=== PATIENT | female | born 1950 ===

== ENCOUNTER 2019-12-09 14:37 | Emergency (ER) | payer MEDICARE, MEDICAID ==
[~2019-12-09] VITALS: Ht 160 cm; Wt 80.0 kg
[~2019-12-09 14:37] MED LIST: ALBU8.5H8 INH; CLOP75TA52 PO; CYAN250013 PO; FAMO20TA7 PO; GABA300C10 PO; HYDR200T72 PO; LEVO88TA4 PO; LORA-446 PO; LOSA25TA25 PO; METO25TA2 PO; MULT-108 PO; OLAN10TA9 PO; OLAN20TA14 PO; SIMV20TA19 PO
--- NOTE | 2019-12-09 14:40 | NUR ---
pt placed in 4p restraints. agitated, uncooperative and swinging at staff and calling names
[2019-12-09] MEDS ORDERED: ZIPRASIDONE 20 MG INJ IM ONE ×2 (15:00→15:15)
[2019-12-09] MEDS ORDERED: PLEASE ENTER ALLERGIES MC SCH (15:00)
[2019-12-09 15:15] LABS: ALANINE AMINOTRANSFERASE 35 U/L (12-78); ALBUMIN 3.6 g/dL (3.4-5.0); ANION GAP 10 mmol/L (5-15); CALCIUM 8.8 mg/dL (8.5-10.1); CHLORIDE 109 mmol/L (98-107); CREATININE 1.04 mg/dL (0.55-1.02); SALICYLATE LEVEL 2.5 mg/dL (2.8-20.0)
[2019-12-09 15:17] LABS: ALKALINE PHOSPHATASE 95 U/L (45-117); BILIRUBIN,TOTAL 0.4 mg/dL (0.2-1.0); TOTAL PROTEIN 7.8 g/dL (6.4-8.2)
[2019-12-09 15:22] LABS: BASOPHILS # (AUTO) 0.03 x10^3/uL (0-0.1); BASOPHILS % (AUTO) 0 % (0-1); EOSINOPHILS # (AUTO) 0.01 x10^3/uL (0-0.4); EOSINOPHILS % (AUTO) 0 % (1-7); LYMPHOCYTES # (AUTO) 1.85 x10^3/uL (1-3.4); LYMPHOCYTES % (AUTO) 18 % (22-44); MD NO; MEAN CORPUSCULAR HGB CONC 33.2 g/dL (32.4-35.8); MEAN CORPUSCULAR VOLUME 93.4 fL (80-100); MEAN PLATELET VOLUME 8.2 fL (7.4-10.4); MONOCYTES # (AUTO) 0.79 x10^3/uL (0.2-0.8); MONOCYTES % (AUTO) 8 % (2-9); NEUTROPHILS # (AUTO) 7.35 x10^3/uL (1.8-6.8); NEUTROPHILS % (AUTO) 73 % (42-75); PLATELET COUNT 302 x10^3/uL (130-400); RED BLOOD COUNT 4.26 x10^6/uL (3.82-5.3); RED CELL DISTRIBUTION WIDTH 14.6 % (9.6-15.2)
--- NOTE | 2019-12-09 15:30 | NUR ---
Ellen Connolly RN from mental health floor down to ER and identified pt as Marli Quinones, 52. pt had the wounds on her extremities prior to arrival to our mental health facitlity over a week ago. she had been accepted after being placed on a hold at [facility]. Wound care nurse was seeing the pt while on 3E. Speculation was that she got them from overuse of silvadene. Pt had been staying at [facility] [phone]. They would not accept her back from [facility]. Pt AMA'd from 3E yesterday.
--- NOTE | 2019-12-09 15:37 | NUR ---
after medicated with geodon, pt continues to be agitated but quieting down. remains in 4p restraints. will continue to monitor.
--- NOTE | 2019-12-09 16:04 | NUR ---
deescalation techniques attempted, pt unwilling to communicate about safety of staff if restraints removed.
--- NOTE | 2019-12-09 16:26 | NUR ---
briana lagos at bedside, pt currently in 2point restraints down from 4.
--- NOTE | 2019-12-09 16:43 | NUR ---
All restraints removed from pt
--- NOTE | 2019-12-09 17:09 | NUR ---
clothing secured in locker. remains in site of sitter.
--- NOTE | 2019-12-09 17:46 | NUR ---
pt provided food. 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 pt staying in bed and cooperative.
[2019-12-09] MEDS ORDERED: OLANZAPINE 10 MG INJ IM PRN (18:00)
--- NOTE | 2019-12-09 18:41 | NUR ---
[facility] DENIED PT
--- NOTE | 2019-12-09 18:56 | NUR ---
report given to orlando tomlinson.
--- NOTE | 2019-12-09 20:34 | NUR ---
Pt waves to staff outside her room as they pass by then states she is blind in the room. Pt continues to have disorganized speech and is difficult to redirect.
--- NOTE | 2019-12-09 22:00 | NUR ---
Received report from melina that pt is masturbating in the room while pretending to smoke her drinking straw. Pt remains in bed.
[2019-12-09] MEDS ORDERED: NEOSPORIN OINT. PKT 1 PACKET ONE (22:42)
--- NOTE | 2019-12-09 23:04 | NUR ---
Pt picked at a scab on her right arm and the skin opened. The wound was dressed and pt removed the dressing. Pt contiued to yell out of the room. Pt given 10mg Zyprexa IM with assistance from security.
--- NOTE | 2019-12-10 01:25 | NUR ---
Break RN: this RN and sitter went to help pt use bedside commode d/t pt stating she needs to use restroom. Pt refused to have this RN and sitter help her and said "get a man".
--- NOTE | 2019-12-10 02:28 | NUR ---
Pt moved from the bed to a commode. Bed cleaned and linen replaced. Pt sat on the commode for about 15 min. Pt assisted back into the bed. Pt was wiped after being on the commode. Pt noted to have redness to her buttocks with a peeling skin wound on her left buttock. Pt very tender during wiping. Pt also noted to have beads stuck to her buttocks, beads removed.
--- NOTE | 2019-12-10 05:02 | NUR ---
Pt transferred to a hospital bed with an air mattress to help prevent further skin breakdown. Pt was noted to have soiled herself and urinated in the bed. Pt is too incoherent at this time to convey when she has to urinate or have a BM.
--- NOTE | 2019-12-10 06:30 | NUR ---
PT VIOLENTLY REFUSED BP. MEAL TRAY ORDERED
--- NOTE | 2019-12-10 06:50 | NUR ---
Pt lying on gurney yelling at anyone walking by room. Sitter remains in view of pt.
--- NOTE | 2019-12-10 07:01 | NUR ---
Attempted to introduce self to pt and offer water. Pt yelling at RN to get out. Open wound and wounds in various stages of healing noted Bilat LE and Bilat UBia. Pt able to reposition self on hospital bed w/ air mattress.
[2019-12-10] MEDS ORDERED: OLANZAPINE 10 MG TABLET ONE (08:43)
--- NOTE | 2019-12-10 08:51 | NUR ---
Attempted to offer pt water. Pt threw water at RN, yelling "I'm going to shoot you," pointing Right index finger at RN. Pt declining to take medications. Pt yelling "Get out Bitch."
[2019-12-10] MEDS ORDERED: OLANZAPINE 10 MG TABLET PO SCH (09:00)
--- NOTE | 2019-12-10 09:50 | NUR ---
Pt lying in bed, talking to self. Sitter remains in view of pt.
--- NOTE | 2019-12-10 10:13 | NUR ---
Pt became aggressive towards RN while attempting to take BP. Pt ripped off ID band, yelling at RN to "get out or I will shoot you."
--- NOTE | 2019-12-10 10:17 | NUR ---
ERP updated on pt condition. Pending orders
[2019-12-10] MEDS ORDERED: ZIPRASIDONE 20 MG INJ IM ONE ×3 (10:28→21:27)
--- NOTE | 2019-12-10 10:34 | NUR ---
Security called to bedside to assist w/ medication administration. Attempted to explain medication to pt, yelling and screaming to "get out." Pt medicated as ordered.
--- NOTE | 2019-12-10 10:49 | NUR ---
Attempted to speak to pt, yelling "get out before I shoot you." Pt lying back on bed.
--- NOTE | 2019-12-10 11:23 | NUR ---
Attempted to engage pt in conversation. Attempted to offer ice chips or water to pt. Pt stated "Dillon she's on fire," began having conversation w/ self. Pt noted to reposition self on hospital bed without difficulty.
--- NOTE | 2019-12-10 11:54 | NUR ---
Security called to room to assist w/ pt care. Pt noted to be covered in urine, pt combative and uncooperative w/ staff. Pt was cleaned, linens changed and repositioned on hospital gurney. Pt yelling profanities and yelling at staff while cleaning up.
--- NOTE | 2019-12-10 12:44 | NUR ---
Pt provided w/ ice chips. Attempted to engage pt in conversation, pt declining to cooperate w/ RN at this time.
[2019-12-10] MEDS ORDERED: OLANZAPINE 10 MG INJ IM PRN (13:00)
[2019-12-10] MEDS: PALIPERIDONE 3 MG TAB.ER.24 PO SCH (13:00)
--- NOTE | 2019-12-10 13:45 | NUR ---
Security called again to bedside, pt had grabbed cords to hospital bed and was attempting to reach for electrical outlet. Cords removed and secured under bed. Pt repositioned again on bed. Attempted to assist w/ water intake, pt threw cup on floor. Sitter remains in direct view of pt at this time.
--- NOTE | 2019-12-10 13:53 | NUR ---
Pt refusing PO pills at this time, threw water on floor.
--- NOTE | 2019-12-10 14:24 | NUR ---
Pt resting quietly on hospital bed at this time. Respirations even and unlabored. Sitter in direct view of pt.
--- NOTE | 2019-12-10 14:52 | NUR ---
Attempted to offer pt food and water. Pt attempted to spit at RN. Pt moving self on gurney. Sitter remains in direct view of pt.
--- NOTE | 2019-12-10 15:52 | NUR ---
TASK RN: PT IN HOSPITAL BED. AWAKE, YELLING AT SITTER. PT REFUSING TO WEAR GOWN, YELLING AT STAFF. MM DRY. ZYPREXA IM ORDERED FROM PHARMACY
--- NOTE | 2019-12-10 17:00 | NUR ---
Attempted to cover pt w/ blanket, pt yelling and screaming profanities at RN. Shira remains in direct view of pt.
--- NOTE | 2019-12-10 18:22 | NUR ---
Call placed to Pharmacy for Zyprexa IM. Pt continuing to yell, refuses to speak to RN, refusing water, gown and blanket at this time. Sitter remains in direct view of pt.
--- NOTE | 2019-12-10 19:03 | NUR ---
Report to TUNDE العراقي. Shira remains in view of pt.
--- NOTE | 2019-12-10 19:04 | NUR ---
REPORT FROM SCOTT GRIFFITHS, ASSUMING CARE OF PT AT THIS TIME
--- NOTE | 2019-12-10 19:31 | NUR ---
PHARMACY CALLED AGAIN FOR IM ZYPREXA. PT CONTINUES TO BE AGGIGATED AND AGGRESSIVE TO FEMALE STAFF.
--- NOTE | 2019-12-10 19:52 | NUR ---
ATTEMPTED TO MEDICATE PT, PT COMBATIVE ATTEMPTING TO KICK AND HIT RN, SECURITY CALLED, NO ONE AVAILABLE AT THIS TIME. PER SECURITY THEY WILL SEND SOMEONE WHEN THEY CAN.
--- NOTE | 2019-12-10 20:04 | NUR ---
SECURITY AT BEDSIDE FOR SAFETY PT MEDICATED PER ARLINE
--- NOTE | 2019-12-10 20:29 | NUR ---
PT NOW SLEEPING ON HOSPITAL BED AND HAS COVERED HERSELF WITH PROVIDED BLANKETS AT THIS TIME. SITTER REMAINS IN VIEW OF PT FOR MONITORING AND SAFETY
--- NOTE | 2019-12-10 20:57 | NUR ---
PT SLEEPING ON HOSPITAL BED, SITTER IN HALLWAY FOR SAFETY ARTUR
[2019-12-10] MEDS ORDERED: DIVALPROEX 500 MG TABLET.DR ONE (21:01)
--- NOTE | 2019-12-10 21:03 | NUR ---
ATTEMPTED TO MEDICATED PT WITH PO DEPAKOTE, PT STS "DO YOU WANNA ?" "I'M ALLERGIC TO THAT YOU BITCH." PT PROVIDED WITH WATER REQ PT REFUSING PO DEPAKOTE AT THIS TIME.
[2019-12-10] MEDS: DIVALPROEX 500 MG TABLET.DR PO SCH (21:06)
--- NOTE | 2019-12-10 21:36 | NUR ---
PT YELLING AT SITTER AND SHOUTING AT PEOPLE IN [place] "DO YOU WANT TO ?" WHEN PT ASKED IF SHE NEEDS ANYTHING, PT ATTEMPTED TO KICK RN. SECURITY CALLED, PT MEDICATED PER DEC.
[2019-12-10] MEDS: ZIPRASIDONE 20 MG INJ IM PRN (21:38)
--- NOTE | 2019-12-10 22:20 | NUR ---
PT NOW RESTING ON BED, NO LONGER SHOUTING AT SITTER AT THIS TIME.
--- NOTE | 2019-12-10 22:52 | NUR ---
PT CONTINUES TO YELL AT STAFF WHEN ENTERING ROOM.
--- NOTE | 2019-12-10 23:08 | NUR ---
SITTER REMAINING IN HALLWAY LINE OF SIGHT OF PT AT ALL TIMES. PT CONTINUES TO SHOUT AT SITTER BUT REMAINS IN BED AT THIS TIME
--- NOTE | 2019-12-11 00:58 | NUR ---
PT RESTING ON HOSPITAL BED LIGHTS DIMMED FOR COMFORT, SITTER IN HALLWAY FOR SAFETY
--- NOTE | 2019-12-11 01:15 | NUR ---
SPOKE WITH ERP ABOUT NEED FOR URINE, PT CONTINUES TO BE COMBATIVE WITH STAFF WHEN IN ROOM, PER ERP NOT TO CATH PT AT THIS TIME.
--- NOTE | 2019-12-11 02:26 | NUR ---
PT SLEEPING ON BED, ARTUR AT THIS TIME, SITTER IN HALLWAY ARTUR
--- NOTE | 2019-12-11 03:30 | NUR ---
PT AWOKE MOMENTARILY TO COVER SELF AND REPOSITION. PT BACK TO SLEEP SITTER CONTINUES TO MONITOR FROM JAFFE AT THIS TIME.
--- NOTE | 2019-12-11 04:32 | NUR ---
PT STILL SLEEPING. SITTER IN HALLWAY FOR SAFETY
--- NOTE | 2019-12-11 07:00 | NUR ---
REC BS REPORT PT RESTING AT THIS TIME
[2019-12-11] MEDS ORDERED: ZIPRASIDONE 20 MG INJ IM ONE (09:08)
[2019-12-11] MEDS: ZIPRASIDONE 20 MG INJ IM PRN (09:20)
--- NOTE | 2019-12-11 09:45 | NUR ---
PT AGGITATED WENT TO BR SCREAMING IN THE BR REQUIRED MEDICATION AND SECURITY TO RETURN PT TO ROOM CONFIRMED REPEAT GEODON WITH ERP
--- NOTE | 2019-12-11 12:00 | NUR ---
NEW UNDERSTANDING THAT HIS PT HAS NOT BEEN COMPLETELY MEDICALLY CLEARED ERP HAS COMPLETE REORDER OF LABS AT THIS TIME PT TO HAVE COMPLETE MEDICAL EVAL
[2019-12-11 12:54] LABS: BASOPHILS # (AUTO) 0.03 x10^3/uL (0-0.1); BASOPHILS % (AUTO) 0 % (0-1); EOSINOPHILS # (AUTO) 0.19 x10^3/uL (0-0.4); EOSINOPHILS % (AUTO) 2 % (1-7); LYMPHOCYTES # (AUTO) 1.55 x10^3/uL (1-3.4); LYMPHOCYTES % (AUTO) 14 % (22-44); MD NO; MEAN CORPUSCULAR HEMOGLOBIN 30.7 pg (27.0-34.8); MEAN CORPUSCULAR HGB CONC 32.7 g/dL (32.4-35.8); MEAN CORPUSCULAR VOLUME 93.9 fL (80-100); MEAN PLATELET VOLUME 7.9 fL (7.4-10.4); MONOCYTES # (AUTO) 0.77 x10^3/uL (0.2-0.8); MONOCYTES % (AUTO) 7 % (2-9); NEUTROPHILS # (AUTO) 8.77 x10^3/uL (1.8-6.8); NEUTROPHILS % (AUTO) 78 % (42-75); PLATELET COUNT 267 x10^3/uL (130-400); RED BLOOD COUNT 4.33 x10^6/uL (3.82-5.3); RED CELL DISTRIBUTION WIDTH 14.8 % (9.6-15.2)
[2019-12-11 12:55] LABS: MICROSCOPIC NOT IND
[2019-12-11 12:55] LABS: ANION GAP 11 mmol/L (5-15); CALCIUM 8.3 mg/dL (8.5-10.1); CHLORIDE 111 mmol/L (98-107); CREATININE 0.62 mg/dL (0.55-1.02)
[2019-12-11 13:01] LABS: CULTURE INDICATED? NO
[2019-12-11 13:35] LABS: AMPHETAMINE SCREEN, URINE Negative (Negative); BARBITURATE SCREEN, URINE Negative (Negative); BENZODIAZEPINE SCREEN, URINE Positive (Negative); CANNABINOID SCREEN, URINE Negative (Negative); COCAINE SCREEN, URINE Negative (Negative); METHADONE SCREEN, URINE Negative (Negative); OPIATE SCREEN, URINE Negative (Negative)
--- NOTE | 2019-12-11 14:29 | NUR ---
TASK RN: PT RESTING ON HOSP BED. PT STAYING IN ROOM AT THIS TIME. ALL SAFETY MEASURES OBTAINED. WILL CONTINUE TO MONITOR
--- NOTE | 2019-12-11 14:58 | NUR ---
TASK RN: BEDSIDE REPORT TO TUNDE ALTAMIRANO.
[2019-12-11] MEDS ORDERED: DIVALPROEX 500 MG TABLET.DR ONE (15:02)
[2019-12-11] MEDS: DIVALPROEX 500 MG TABLET.DR PO SCH ×2 (15:21→21:00)
[2019-12-11] MEDS: PALIPERIDONE 3 MG TAB.ER.24 PO SCH (15:21)
--- NOTE | 2019-12-11 15:21 | NUR ---
MULTI ATTEMPTS TO GET PT TO TAKE MEDS SHE CONTINUES TO REFUSE
--- NOTE | 2019-12-11 18:24 | NUR ---
PT REMAINS TALKATIVE IN THE DOORWAY REFUSING VITALS DOES TAKE REDIRECTION TO STAY IN THE ROOM
--- NOTE | 2019-12-11 18:34 | NUR ---
THROUGHPUT NOTE: REGISTRATION CALLED TO VERIFY INSURANCE PT IS 69 YO AND SELF PAY. PT WAS NON COMPLIANT PER REG WHEN THEY ORIGINALLY ATTEMPTED TO REGISTER.
--- NOTE | 2019-12-11 20:00 | NUR ---
PT STANDING IN DOORWAY. SITTER FOR DIRECT OBSERVATION. NO NEEDS AT THIS TIME.
--- NOTE | 2019-12-11 20:07 | NUR ---
referral was faxed to [facility], [facility], [facility], and [facility]
--- NOTE | 2019-12-11 21:00 | NUR ---
PT RESTING WITH EYES CLOSED. SITTER IN DOORWAY.
--- NOTE | 2019-12-11 22:00 | NUR ---
PT RESTING WITH EYES CLOSED. SITTER IN DOORWAY.
--- NOTE | 2019-12-11 23:00 | NUR ---
PT RESTING WITH EYES CLOSED. VISUALIZED CHEST RISE. SITTER IN DOORWAY.
--- NOTE | 2019-12-12 01:00 | NUR ---
PT RESTING WITH EYES CLOSED. VISUALIZED CHEST RISE. SITTER IN DOORWAY.
--- NOTE | 2019-12-12 02:17 | NUR ---
[place] eng in ED - 12/12/19 at 0251 by AJ BREAK RN: PT RESTING WITH EYES CLOSED, NADN, EQUAL CHEST RISE/FALL OBSERVED, SITTER AT DOORWAY FOR CONTINOUS MONITORING
--- NOTE | 2019-12-12 02:17 | NUR ---
BREAK RN: PT RESTING WITH EYES CLOSED, NADN, EQUAL CHEST RISE/FALL OBSERVED, SITTER AT DOORWAY FOR CONTINOUS MONITORING
--- NOTE | 2019-12-12 03:00 | NUR ---
PT RESTING WITH EYES CLOSED. VISUALIZED CHEST RISE. SITTER IN DOORWAY.
--- NOTE | 2019-12-12 03:41 | NUR ---
[facility] CALLS AND NOTES THAT THEY CURRENTLY DO NOT HAVE ANY BEDS BUT WILL HOLD ONTO PACKET AND RE-EVAL IN THE MORNING.
--- NOTE | 2019-12-12 04:00 | NUR ---
PT RESTING WITH EYES CLOSED. VISUALIZED CHEST RISE. SITTER IN DOORWAY.
--- NOTE | 2019-12-12 05:00 | NUR ---
PT RESTING WITH EYES CLOSED. VISUALIZED CHEST RISE. SITTER IN DOORWAY.
--- NOTE | 2019-12-12 05:44 | NUR ---
PT AWAKE AND AGITATED. YELLING AT STAFF. SPOKE WITH PT ABOUT BEHAVIOR. SHE IS NOT COMPLYING.
[2019-12-12] MEDS ORDERED: ZIPRASIDONE 20 MG INJ IM ONE ×2 (05:49→19:42)
[2019-12-12] MEDS: ZIPRASIDONE 20 MG INJ IM PRN ×2 (05:54→20:08)
[2019-12-12] MEDS ORDERED: MAALOX/HYOSCYAMINE/LIDOCAINE 45 ML BTL ONE ×2 (06:07→23:00)
--- NOTE | 2019-12-12 06:10 | NUR ---
PT MEDICATED PER DEC FOR AGITATION. PT PROVIDED WITH TOOTHBRUSH, COMB, MOUTHWASH, AND TOWELS FOR ADL'S. PT ASKING FOR SOMETHING FOR HEARTBURN. NOTIFIED
[2019-12-12] MEDS ORDERED: MAALOX/HYOSCYAMINE/LIDOCAINE 45 ML BTL PO ONE (06:30)
--- NOTE | 2019-12-12 07:00 | NUR ---
REC REPORT ASSUMED CARE PT RESTING IN THE ROOM
[2019-12-12] MEDS: DIVALPROEX 500 MG TABLET.DR PO SCH ×2 (09:00→20:07)
[2019-12-12] MEDS: PALIPERIDONE 3 MG TAB.ER.24 PO SCH ×2 (09:00→20:08)
--- NOTE | 2019-12-12 09:00 | NUR ---
REPORT TO [facility]
--- NOTE | 2019-12-12 10:21 | NUR ---
PT HAS BEEN COOOERATIVE THIS AM HOWEVER REFUSES MEAL MEDS AND VITALS
--- NOTE | 2019-12-12 12:50 | NUR ---
[facility] CALLED REQ A PT UPDATE GAVE AN OTHER UP DATE
--- NOTE | 2019-12-12 13:57 | NUR ---
RECEIVED REPORT FROM ADARSH. PT STANDING AT DOOR TO ROOM CALM & COOPERATIVE AT THIS TIME, MOD REDIRECTION HELPFUL, NAD, NO NEEDS AT THIS TIME, PT REMAINS IN SAFE ENVIRONMENT, SITTER IN VIEW.
--- NOTE | 2019-12-12 15:00 | NUR ---
PT SITTING UP ON GURNEY CALM & COOPERATIVE, MOD REDIRECTION HELPFUL, NAD, SOFT FOODS TRAY GIVEN WITH NO OTHER NEEDS AT THIS TIME, PT REMAINS IN SAFE ENVIRONMENT, SITTER IN VIEW.
--- NOTE | 2019-12-12 15:38 | NUR ---
REPORT GIVEN TO MANUEL ([facility]), HE WILL DISCUSS POSSIBLE ACCEPTANCE WITH [facility] ADMIT MD & WILL CALL BACK WITH UPDATE.
--- NOTE | 2019-12-12 16:01 | NUR ---
PT LAYING ON GURNEY MOSTLY AWAKE, RESTLESS AT TIMES & BECOMES AGITATED BUT REDIRECTION HELPFUL, NAD, NO NEEDS AT THIS TIME, PT REMAINS IN SAFE ENVIRONMENT, SITTER IN VIEW.
--- NOTE | 2019-12-12 17:02 | NUR ---
PT CONTINUES LAYING OR SITTING ON GURNEY MOSTLY AWAKE, REMAINS RESTLESS WITH OCCAS AGITATION AT TIMES BUT REDIRECTION USUALLY HELPFUL, NAD, REFUSED MEAL TRAY, NO NEEDS AT THIS TIME, PT REMAINS IN SAFE ENVIRONMENT, SITTER IN VIEW.
--- NOTE | 2019-12-12 17:15 | NUR ---
CATERINA ([facility]) CALLED RE: PT BECAMING INCREASING AGITATED, GIVEN PRN ZYPREXA, PT LAYING ON GURNEY WITH EYES CLOSED BUT TALKING TO HERSELF, NAD, REFUSED MEAL TRAY & NO OTHER NEEDS AT THIS TIME, PT REMAINS IN SAFE ENVIRONMENT, SITTER IN VIEW.
[2019-12-12] MEDS: OLANZAPINE 10 MG INJ IM PRN (17:22)
--- NOTE | 2019-12-12 18:00 | NUR ---
PT SITTING UP ON GURNEY MOSTLY AWAKE, RESTLESS AT TIMES & BECOMES AGITATED CALLING STAFF NAMES ("FUCKING ASSHOLE! I WANT MY MEDS BITCH! 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
--- NOTE | 2019-12-12 18:49 | NUR ---
REPORT GIVEN TO ALTAF
[2019-12-12] MEDS ORDERED: FAMOTIDINE 20 MG TABLET PO ONE (19:00)
[2019-12-12] MEDS ORDERED: GABAPENTIN 300 MG CAPSULE PO ONE (19:00)
[2019-12-12] MEDS ORDERED: ALBUTEROL/IPRATROPIUM 2.5MG/0.5MG, 3 ML NPPB PRN (19:00)
[2019-12-12] MEDS ORDERED: FAMOTIDINE 20 MG TABLET ONE (19:42)
[2019-12-12] MEDS ORDERED: DIVALPROEX 500 MG TABLET.DR ONE (19:42)
[2019-12-12] MEDS ORDERED: GABAPENTIN 300 MG CAPSULE ONE (19:42)
[2019-12-12] MEDS ORDERED: CLOPIDOGREL 75 MG TABLET ONE (20:05)
[2019-12-12] MEDS: LEVOTHYROXINE 88 MCG TABLET PO SCH (20:07)
--- NOTE | 2019-12-12 21:56 | NUR ---
PT TOOK SHOWER WITH SITTER'S ASSISTANCE. PT BECAME QUITE AGITATED. PT TAKEN BACK TO ROOM. YOUGURT AND JUICE PROVIDED. NOTIFIED DR OF PT'S SKIN RASH/WILKINSON. DR TO SEE.
[2019-12-12] MEDS ORDERED: ALBUTEROL/IPRATROPIUM 2.5MG/0.5MG, 3 ML ONE (22:05)
[2019-12-12] MEDS ORDERED: NEOSPORIN OINT. PKT 1 PACKET TP PRN (22:30)
[2019-12-12] MEDS ORDERED: NEOSPORIN OINT. PKT 1 PACKET ONE (23:00)
[2019-12-12] MEDS: MAALOX/HYOSCYAMINE/LIDOCAINE 45 ML BTL PO PRN (23:03)
--- NOTE | 2019-12-12 23:50 | NUR ---
PT RESTING WITH EYES CLOSED. SITTER IN DOORWAY.
--- NOTE | 2019-12-13 01:00 | NUR ---
PT RESTING WITH EYES CLOSED. SITTER IN DOORWAY.
--- NOTE | 2019-12-13 02:00 | NUR ---
PT RESTING WITH EYES CLOSED. SITTER IN DOORWAY.
--- NOTE | 2019-12-13 03:00 | NUR ---
PT RESTING WITH EYES CLOSED. SITTER IN DOORWAY.
--- NOTE | 2019-12-13 04:00 | NUR ---
PT AWAKE SITTING AT SIDE OF BED. NO NEEDS AT THIS TIME. SITTER IN DOORWAY.
--- NOTE | 2019-12-13 07:02 | NUR ---
Received bedside report from TUNDE Dennison. All questions answered. Assuming care of pt. Pt resting on hospital bed with unlabored respirations and even chest rise and fall. No needs expressed at this time. Sitter near doorway in direct line of sight for observation. Breakfast tray ordered.
--- NOTE | 2019-12-13 08:20 | NUR ---
Breakfast tray provided for pt.
[2019-12-13] MEDS ORDERED: DIVALPROEX 500 MG TAB.ER.24H ONE (08:33)
[2019-12-13] MEDS ORDERED: METOPROLOL TARTRATE 25 MG TAB ONE (08:33)
--- NOTE | 2019-12-13 08:33 | NUR ---
ang with [facility] declines pt due to pts unablitity to care to self/hygiene.
--- NOTE | 2019-12-13 08:45 | NUR ---
Yellow slip sent to pharmacy for med request. Pt awake yelling at staff air tactical officer, "get out of here bitch" when clinical staff anesthesiologist is securing SI/HI thomas.
[2019-12-13] MEDS ORDERED: CLOPIDOGREL 75 MG TABLET PO SCH (09:00)
[2019-12-13] MEDS: LOSARTAN 25MG TABLET PO SCH (09:16)
[2019-12-13] MEDS: DIVALPROEX 500 MG TABLET.DR PO SCH ×4 (09:16→21:00)
[2019-12-13] MEDS: CYANOCOBALAMIN 1,000 MCG TABLET PO SCH (09:17)
[2019-12-13] MEDS: METOPROLOL SUCCINATE 25 MG TAB.ER.24H PO SCH (09:17)
--- NOTE | 2019-12-13 09:21 | NUR ---
Pt verbally abusive to staff calling staff, "bitch" and telling staff "get the fuck out of my room". Security verbally re-direct pt. EDRN provided pt medicaiton. Pt has tangential speech and is verbally abusive to ED staff research associate, calling RN, "you stupid bitch....I need my Bendaryl...I ride a lida...I am allergic to the sun....damn cow you're ."
[2019-12-13] MEDS ORDERED: MAALOX/HYOSCYAMINE/LIDOCAINE 45 ML BTL ONE (09:53)
[2019-12-13] MEDS: OLANZAPINE 10 MG INJ IM PRN (09:58)
[2019-12-13] MEDS: MAALOX/HYOSCYAMINE/LIDOCAINE 45 ML BTL PO PRN (10:00)
--- NOTE | 2019-12-13 10:01 | NUR ---
Provided pt medications per EMAR. Pt remains verbally abusive and aggressive to staff. ED RN attempted to verbally re-direct pt. Pt requesting chapstick. Sitter near doorway in direct line of sight for observation. SI/HI precautions remain in place.
--- NOTE | 2019-12-13 10:43 | NUR ---
Pt requested shower. Pt has sitter in direct line of sight for observation. Pt provided new gown, socks, towels, wash clothes, and toiletries. Pt apprecaitive.
--- NOTE | 2019-12-13 11:30 | NUR ---
Pt uncooperative when ED staff attempt to assist pt from shower to room. 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 Pt able to walk from wheelchair to hospital bed. Pt yells at EDRN, "you stupid bitch put my socks on for me and my underwear." Pt able to walk with steady gait and balance from hospital bed to doorway and begins yelling at ED RN and sitter.
--- NOTE | 2019-12-13 12:43 | NUR ---
LATE NOTE ENTRY DUE TO PT CARE FOR 1200: Pt provided lunch tray. Pt states, "I am vegetarian you stupid bitch." Pt requesting vegetarian meal tray. Meal tray ordered. Pt sitting on hospital bed in SI/HI secured room. Sitter near doorway in direct line of sight for observation.
--- NOTE | 2019-12-13 13:12 | NUR ---
PT RESTING IN HOSPITAL BED, SITTER AT DOORWAY.
--- NOTE | 2019-12-13 13:13 | NUR ---
BEDSIDE REPORT FROM JUNO GRIFFITHS
--- NOTE | 2019-12-13 13:20 | NUR ---
LATE NOTE ENTRY DUE TO PT CARE. Pt not allowing EDRN to obtain new set of vitals.
--- NOTE | 2019-12-13 14:08 | NUR ---
PT SLEEPING IN HOSPITAL WITH TV ON, EQUAL CHEST RISE AND FALL. SITTER AT BEDSIDE. NO NEEDS AT THIS TIME.
--- NOTE | 2019-12-13 15:03 | NUR ---
PT SLEEPING IN HOSPITAL WITH TV ON, EQUAL CHEST RISE AND FALL. SITTER AT BEDSIDE. NO NEEDS AT THIS TIME.
--- NOTE | 2019-12-13 16:04 | NUR ---
PT SLEEPING IN HOSPITAL WITH TV ON, EQUAL CHEST RISE AND FALL. SITTER AT BEDSIDE. NO NEEDS AT THIS TIME.
--- NOTE | 2019-12-13 18:33 | NUR ---
PER [facility] PT HAS NO DAYS LEFT
--- NOTE | 2019-12-13 19:30 | NUR ---
PT RESTING CALMLY WITH EYES CLOSED, NAD, RESPIRATIONS EVEN AND UNLABORED, ROOM SECURED, SITTER AT DOORWAY FOR CONTINOUS MONITORING
--- NOTE | 2019-12-13 20:23 | NUR ---
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 PROVIDED PT WITH MEAL TRAY. SITTER REMAINS AT DOORWAY FOR CONTINOUS MONITORING
[2019-12-13] MEDS ORDERED: DIVALPROEX 500 MG TABLET.DR ONE (20:27)
[2019-12-13] MEDS ORDERED: CLOPIDOGREL 75 MG TABLET ONE (20:27)
[2019-12-13] MEDS ORDERED: ZIPRASIDONE 20 MG INJ IM ONE (20:28)
[2019-12-13] MEDS: PALIPERIDONE 3 MG TAB.ER.24 PO SCH (20:37)
[2019-12-13] MEDS: CLOPIDOGREL 75 MG TABLET PO SCH (20:37)
--- NOTE | 2019-12-13 20:41 | NUR ---
pt yelling out to this rn and demanding medications and then when this rn offers her medications she yells " i'm allergic to them stupid", and using other inappropriate language, refusing geodon shot. security called for assistance with administering pt's medication
[2019-12-13] MEDS: ZIPRASIDONE 20 MG INJ IM PRN (20:45)
--- NOTE | 2019-12-13 20:46 | NUR ---
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 SECURITY AT PT'S BEDSIDE AND PT MEDICATED PER MAR. FONSECA REMAINS AT DOORWAY FOR CONTINOUS MONITORING
--- NOTE | 2019-12-13 20:46 | NUR ---
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 SECURITY AT PT'S BEDSIDE AND PT MEDICATED PER MAR. SITTER REMAINS AT DOORWAY FOR CONTINOUS MONITORING
--- NOTE | 2019-12-13 21:50 | NUR ---
pt continues to yell out to this rn as i walk in hallway "you bitch". sitter infoemed this rn that pt requesting her zyprexa. informed pt that i ordered her medication from pharmacy and will bring it as soon as it arrives,pt denies further needs.
--- NOTE | 2019-12-13 22:16 | NUR ---
PHARMACY CALLED REGARDING PT'S ZYPREXA, NOTIFIED THAT THEY ARE SENDING MEDICATION NOW
--- NOTE | 2019-12-13 22:17 | NUR ---
PT'S B/P WAS TAKEN, PT REFUSING FURTHER VS TO BE TAKEN.
--- NOTE | 2019-12-13 22:27 | NUR ---
PT RESTING CALMLY WITH EYES CLOSED, NAD, EQUAL CHEST RISE/FALL OBSERVED. SITTER AT DOORWAY FOR CONTINOUS MONITORING
--- NOTE | 2019-12-13 23:30 | NUR ---
PT RESTING WITH EYES CLOSED, NOTED PT REPOSITIONED SELF IN BED, EQUAL CHEST RISE/FALL OBSERVED. SITTER AT DOORWAY FOR CONTINOUS MONITORING
--- NOTE | 2019-12-14 00:46 | NUR ---
PT RESTING CALMLY WITH EYES CLOSED, NAD, EQUAL CHEST RISE/FALL OBSERVED. SITTER AT DOORWAY FOR CONTINOUS MONITORING
--- NOTE | 2019-12-14 01:18 | NUR ---
report given to orlando chiu
--- NOTE | 2019-12-14 01:45 | NUR ---
pt moves all extremities in the bed . still refused all vss will wait further pt is fully awake RR is even sitter at door
--- NOTE | 2019-12-14 04:33 | NUR ---
this rn want to check at least pt's pul ox while pt is sleeping but pt already agitated when this rn wanted to apply pul ox on pt's finger. pt screamed took away pul ox pt's behavior was same as before pt's voice is clear pt is strong to refused to take. overall pt's condition is stable unable to check vss especially pul ox will monitor a little more sitter at door
[2019-12-14] MEDS: OLANZAPINE 10 MG INJ IM PRN (05:52)
--- NOTE | 2019-12-14 05:58 | NUR ---
pt agitated after woke up . given coffee comb but unable to make pt calm down . pt is more escalated pt walked out from the up to [place] called security given zyprexa via im ( left deltoid muscle ) pt is still agitated now
[2019-12-14] MEDS: LEVOTHYROXINE 88 MCG TABLET PO SCH (06:00)
[2019-12-14] MEDS: METOPROLOL SUCCINATE 25 MG TAB.ER.24H PO SCH (06:00)
--- NOTE | 2019-12-14 06:01 | NUR ---
vss checked hr is slight up to 100 oxygen sats 90-91% at room air pt is sitting on the bed sitter at the door
--- NOTE | 2019-12-14 06:17 | NUR ---
spoke to dr cevallos regarding pt's ekg d/t pt is on geodon and zyprexa dr cevallos ordered ekg when able .
--- NOTE | 2019-12-14 06:18 | NUR ---
requested sitter especially male sitter d/t pt's behavior
--- NOTE | 2019-12-14 06:52 | NUR ---
report received from [employer].
[2019-12-14] MEDS ORDERED: DIVALPROEX 500 MG TABLET.DR ONE ×2 (07:14→20:24)
[2019-12-14] MEDS ORDERED: METOPROLOL TARTRATE 25 MG TAB ONE (07:15)
--- NOTE | 2019-12-14 07:23 | NUR ---
medications ordered from pharmacy at this time.
--- NOTE | 2019-12-14 07:55 | NUR ---
emt attempted to take ekg at this time. pt states"no, no, get out." unable to take ekg at this time.
[2019-12-14] MEDS: CYANOCOBALAMIN 1,000 MCG TABLET PO SCH (08:09)
[2019-12-14] MEDS: LOSARTAN 25MG TABLET PO SCH (08:11)
[2019-12-14] MEDS: DIVALPROEX 500 MG TABLET.DR PO SCH ×2 (08:11→21:42)
--- NOTE | 2019-12-14 08:12 | NUR ---
pt medicated per emar. pt refused depakote at this time. pt states "i'm allergic to depakote." pt tolerated well.
--- NOTE | 2019-12-14 08:15 | NUR ---
pt refused meal tray and states"i'm vegetarian."
--- NOTE | 2019-12-14 08:18 | NUR ---
pt took meal tray for room1. melina told"this is for the other pt." pt didn't listen and took it and ate it. this rn ordered meal tray for room 1 again.
--- NOTE | 2019-12-14 08:38 | NUR ---
pt amb to br and back to room with steady gait.
--- NOTE | 2019-12-14 09:40 | NUR ---
PATIENT REFUSING EKG
--- NOTE | 2019-12-14 09:58 | NUR ---
PT AGITATED. PROVIDED SOME MILK AND SNACKS, BUT UNABLE TO MAKE PT CALM CATALINO. PT STATES"I'M LEAVING." PT YELLED AT THIS RN. CALLED SECURITY.
--- NOTE | 2019-12-14 10:29 | NUR ---
MEAL TRAY ORDERED AT THIS TIME.
--- NOTE | 2019-12-14 11:17 | NUR ---
pt amb to br with steady gait.
--- NOTE | 2019-12-14 11:44 | NUR ---
lunch tray provided at this time.
--- NOTE | 2019-12-14 13:05 | NUR ---
PT RESTING IN ROOM. RESPS EVEN AND UNLABORED. SITTER MONITORING FROM HALLWAY FOR SAFETY. ROOM REMAINS SECURE.
--- NOTE | 2019-12-14 14:14 | NUR ---
COFFEE PROVIDED AT THIS TIME.
--- NOTE | 2019-12-14 15:33 | NUR ---
Pt verbally abusive to staff calling staff, "bitch" and telling staff "get the fuck out of my room. 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 you're stupid". Security and this rn verbally re-direct pt. pt sitting on shopital bed at this time. sitter monitoring from [facility] for safety.
--- NOTE | 2019-12-14 15:44 | NUR ---
coffee provided at this time per pt's request.
--- NOTE | 2019-12-14 16:20 | NUR ---
late entry: Have attempted EKG but patient is aggressive and refusing ekg.
--- NOTE | 2019-12-14 16:25 | NUR ---
Pt verbally abusive to staff calling staff, "bitch" and telling staff "get the fuck out of my room.you're not my nurse. you're just stupid". Security and this rn verbally re-direct pt.
--- NOTE | 2019-12-14 17:09 | NUR ---
pt sitting on hospital bed. resps even and unlabored. sitter monitoring from hallway for safety. room remains secure.
--- NOTE | 2019-12-14 17:30 | NUR ---
meal tray ordered at this time.
--- NOTE | 2019-12-14 18:17 | NUR ---
meal tray provided at this time. pt agitated. she states" i don't eat any white bread bitch. get out of here."
--- NOTE | 2019-12-14 19:01 | NUR ---
REPORT GIVEN TO MIRELLA GRIFFITHS.
--- NOTE | 2019-12-14 19:16 | NUR ---
ASSUMED CARE OF PT. PT CURRENTLY YELLING AND SCREAMING, SITTER AT BEDSIDE.
--- NOTE | 2019-12-14 19:57 | NUR ---
REFUSING EKG, REFUSING CARE BY RN AT THIS TIME, STATES SHE WANTS EVERYONE OUT OF THE ROOM.
[2019-12-14] MEDS ORDERED: CLOPIDOGREL 75 MG TABLET ONE (20:20)
[2019-12-14] MEDS ORDERED: DIVALPROEX 500 MG TAB.ER.24H ONE (20:20)
--- NOTE | 2019-12-14 21:04 | NUR ---
REFUSING TO SPEAK TO RN, PT IS NOT ANSWERING QUESTIONS, RN OFFERED NIGHT TIME MEDS, PT CONTINOUS TO BE SILENT WITH INTENSE LOOK. SITTER AT BEDSIDE.
--- NOTE | 2019-12-14 21:39 | NUR ---
REQUESTING COFFEE AND MEDICATIONS, RN BROUGHT MEDS TO PT, PT REFUSED DEPAKOTE STATES SHE IS ALLERGIC. SITTER AT DOORWAY FOR SAFETY OBSERVATION.
[2019-12-14] MEDS: PALIPERIDONE 3 MG TAB.ER.24 PO SCH (21:42)
[2019-12-14] MEDS: CLOPIDOGREL 75 MG TABLET PO SCH (21:42)
--- NOTE | 2019-12-14 22:07 | NUR ---
PT UP TO RESTROOM.
--- NOTE | 2019-12-15 01:13 | NUR ---
REFUSING VITAL SIGNS, PT SITTING ON CHAIR WATCHING TV, DOES NOT RESPOND TO RN SHE ONLY MOVES HEAD INDICATING "NO" AND HAS INTENSE LOOK.
--- NOTE | 2019-12-15 02:59 | NUR ---
PT LAYING ON BED, NO ACUTE DISTRESS NOTED, RESP EVEN AND UNLARORED. SITTER AT DOORWAY.
--- NOTE | 2019-12-15 06:20 | NUR ---
PT AWAKE YELLING AT STAFF PASSING BY. NO ACUTE DISTRESS NOTED. SITTER AT DOORWAY FOR MONITORING.
--- NOTE | 2019-12-15 06:54 | NUR ---
REPORT GIVEN TO JUNO GRIFFITHS.
--- NOTE | 2019-12-15 07:03 | NUR ---
Received bedside report from TUNDE Frey. Pt sittin on hospital bed in SI/HI secured room. No needs expressed at this time. Sitter in direct line of sight for observation. Breakfast tray ordered.
--- NOTE | 2019-12-15 07:08 | NUR ---
Yellow slip sent to pharmacy to request morning meds.
--- NOTE | 2019-12-15 08:22 | NUR ---
LATE NOTE ENTRY DUE TO PT CARE. Attempted to provide pt morning medications. Went to patient room to obtain vital signs and give morning meds. Opened pt door, pt states, "Drop . Aren't you yet?" Attempted to verbally redirect patient asking if she would like her morning meds. Pt sitting on edge of hospital bed appearing aggitated yelling at ED RN to "get the fuck out of my room!". Attempted to provide pt morning breakfast tray. Pt standing at doorway and hesitating on taking breakfast tray. Pt grabbed milk off tray. ED RN attempted to redirect pt verbally by requesting pt to sit down near bed and allow ED staff to place tray near bedside for pt. Pt staring at staff shaking. Sitter attempted to provide pt food tray. Pt yells out at sitter, "UFO, you fucking ." ED staff verbally redirect pt to not speak to staff that way and to please return to room.
[2019-12-15] MEDS: METOPROLOL SUCCINATE 25 MG TAB.ER.24H PO SCH (08:26)
[2019-12-15] MEDS: DIVALPROEX 500 MG TABLET.DR PO SCH ×2 (08:26→21:26)
[2019-12-15] MEDS: LOSARTAN 25MG TABLET PO SCH (08:26)
[2019-12-15] MEDS: LEVOTHYROXINE 88 MCG TABLET PO SCH (08:26)
[2019-12-15] MEDS: CYANOCOBALAMIN 1,000 MCG TABLET PO SCH (08:27)
--- NOTE | 2019-12-15 08:27 | NUR ---
Patient refusing ED RN to obtain vital signs, re assess SI screening, or perform physical assessment.
--- NOTE | 2019-12-15 09:31 | NUR ---
Pt sitting on hospital bed with door closed yelling at people walking by. SI/HI precautions remain in place. Sitter in direct line of sight for observation. No needs expressed at this time.
--- NOTE | 2019-12-15 09:42 | NUR ---
doug with [facility] called and given up date that pt still in er needing placement. says if bed opens up they will call.
--- NOTE | 2019-12-15 10:25 | NUR ---
Pt yelling at sitter in hallway and moving closer towards sitter. EDRN verbally redirected pt with boundaries educating pt to not talk to hospital staff in an aggressive manner, not to yell at staff, and not to swear or make threats towards staff. Pt yells at ED RN, "you fucking bitch you're not walking me to the bathroom, you're not touching me with your hands, I would rather pee in my bed." Pt offered by other ED staff to be escorted to bathroom. Pt refused and walked back into room.
--- NOTE | 2019-12-15 10:30 | NUR ---
lunch tray ordered for pt.
[2019-12-15] MEDS ORDERED: LORazepam 2 MG/ML, 1ML ONE (11:51)
[2019-12-15] MEDS ORDERED: DIPHENHYDRAMINE 50 MG/ML, 1ML ONE (11:51)
--- NOTE | 2019-12-15 11:54 | NUR ---
PT GETTING INCREASINGLY AGITATED. MADE AWARE. ORDERS RECIEVED TO MEDICATE. [facility] CALLED FOR ASSISTANCE.
[2019-12-15] MEDS ORDERED: DIPHENHYDRAMINE 50 MG/ML, 1ML IM ONE (12:00)
[2019-12-15] MEDS ORDERED: LORazepam 2 MG/ML, 1ML IM ONE (12:00)
--- NOTE | 2019-12-15 12:12 | NUR ---
Orders changed for prn meds per Psych LOSS CONTROL TECHNICIAN. Waiting for meds from pharamcy. Provided food tray to pt.
--- NOTE | 2019-12-15 12:26 | NUR ---
Waiting for medications from pharmacy. Pt sitting in SI/HI secured room. Sitter in direct line of sight for observation.
[2019-12-15] MEDS ORDERED: BENZTROPINE 1 MG/ML, 2 ML IM ONE (12:30)
--- NOTE | 2019-12-15 13:09 | NUR ---
BREAK RN: PT SITTING ON BED AT THIS TIME. DOOR CLOSED, ROOM SECURE. PT REFUSING TO ANSWER ANY QUESTIONS AT THIS TIME. PT SCREAMS AT THIS RN UPON OPENING DOOR TO ROOM.
[2019-12-15] MEDS: OLANZAPINE 10 MG INJ IM PRN (13:26)
--- NOTE | 2019-12-15 13:34 | NUR ---
LATE NOTE ENTRY DUE TO PT CARE. Discussed EMAR plan of care with psych MINERALOGY TEACHER. ED RN and psych MINERALOGY TEACHER attempted to talk to pt regarding medicaitons per EMAR. Pt became aggressive with psych MINERALOGY TEACHER verbally and told him to "get the fuck out of here". Security called to assist with re-directing patient. Patient provided medications per EMAR. Pt became aggitated when security exited the room and opened SI rolling thomas. Security assisted with getting thomas closed and locked again. Patient sitting on hospital bed in SI/HI secured room. Sitter near doorway in direct line of sight for observation.
--- NOTE | 2019-12-15 14:04 | NUR ---
Pt exited room and started yelling at sitter. Pt re-directed to room. Pt yelled at sitter, "shut up you bastard."
--- NOTE | 2019-12-15 14:08 | NUR ---
RECEIVED REPORT FROM JUNO, PT SITTING ON HOSPITAL BED, REFUSES TO ANSWER STAFF QUESTIONS DESPITE REDIRECTION OR REASSURANCE, NAD, CONTINUES TO REFUSE MEAL TRAY- NO OTHER NEEDS AT THIS TIME, PT REMAINS IN SAFE ENVIRONMENT, SITTER IN VIEW.
--- NOTE | 2019-12-15 15:00 | NUR ---
PT CONTINUES SITTING ON HOSPITAL BED, REFUSES TO INTERACT WITH STAFF, NAD, NO NEEDS AT THIS TIME, PT REMAINS IN SAFE ENVIRONMENT, SITTER IN VIEW.
--- NOTE | 2019-12-15 16:02 | NUR ---
PT LAYING ON HOSPITAL BED, HAD AN EPISODE OF YELLING AT SITTER "GET OUT OF HERE, YOU GOOK!", YELLS AT RN "YOU BETTER WATCH YOUR KIDS, THEY'RE GONNA !", PT REDIRECTED & EDUCATED ON INAPPROPRIATE BEHAVIOR, NAD, NO NEEDS AT THIS TIME, PT REMAINS IN SAFE ENVIRONMENT, SITTER IN VIEW.
--- NOTE | 2019-12-15 17:01 | NUR ---
PT CONTINUES LAYING ON HOSPITAL BED, REFUSES TO INTERACT WITH STAFF, NAD, NO NEEDS AT THIS TIME, PT REMAINS IN SAFE ENVIRONMENT, SITTER IN VIEW.
--- NOTE | 2019-12-15 17:45 | NUR ---
DINNER TRAY GIVEN
--- NOTE | 2019-12-15 18:03 | NUR ---
PT LAYING ON HOSPITAL BED, REFUSES TO INTERACT WITH STAFF, NAD, NO NEEDS AT THIS TIME, PT REMAINS IN SAFE ENVIRONMENT, SITTER IN VIEW.
--- NOTE | 2019-12-15 19:02 | NUR ---
REPORT GIVEN TO OSVALDO
--- NOTE | 2019-12-15 19:10 | NUR ---
pt sitting up in bed, nad, respirations even and unlabored, room secured, sitter at doorway for continous monitoring
--- NOTE | 2019-12-15 20:04 | NUR ---
pt sitting up in bed, medical research assistant at [facility] for pt's vs-pt refused, sitter at doorway for continous monitoring
--- NOTE | 2019-12-15 20:06 | NUR ---
pt refusing to talk to this rn, i attempted to talk to pt regarding her night time scheduled medications and checking her vs, pt refused to answer questions, just stares at this rn and made motion to spit at me.
[2019-12-15] MEDS ORDERED: PALIPERIDONE 3 MG TAB.ER.24 PO SCH (21:00)
[2019-12-15] MEDS ORDERED: CLOPIDOGREL 75 MG TABLET ONE (21:00)
[2019-12-15] MEDS ORDERED: DIVALPROEX 500 MG TABLET.DR ONE (21:00)
[2019-12-15] MEDS ORDERED: OLANZAPINE 10 MG TABLET ONE (21:00)
[2019-12-15] MEDS: OLANZAPINE 10 MG TABLET PO SCH (21:16)
[2019-12-15] MEDS: CLOPIDOGREL 75 MG TABLET PO SCH (21:16)
--- NOTE | 2019-12-15 21:17 | NUR ---
PT MEDICATED BY TUNDE FIGUEROA Addendum: 12/15/19 at 2212 by RYAN pt continues to refuse having vs taken
--- NOTE | 2019-12-15 21:26 | NUR ---
PT IN ROOM OPENING GARAGE DOORS, SITTER AT PT'S SIDE AND DOORS CLOSED, ROOM REMAINS SECURED
--- NOTE | 2019-12-15 21:30 | NUR ---
pt in [place] attempting to take potable b/p machine in her room, pt also blowing kisses and stated " i love you" to pt across [place]. eddieter removed b/p machine and redirected pt back to her room.
--- NOTE | 2019-12-15 22:10 | NUR ---
pt resting in bed with eyes closed, nad, equal chest rise/fall observed, sitter at doorway for continous monitoring
--- NOTE | 2019-12-15 23:53 | NUR ---
pt resting in bed with eyes closed, equal chest rise/fall observed, sitter at doorway for continous monitoring
--- NOTE | 2019-12-16 00:52 | NUR ---
pt resting in bed with eyes closed, equal chest rise/fall observed, sitter at doorway for continous monitoring
--- NOTE | 2019-12-16 02:00 | NUR ---
pt resting in bed with eyes closed, equal chest rise/fall observed, sitter at doorway for continous monitoring
--- NOTE | 2019-12-16 03:00 | NUR ---
pt resting in bed with eyes closed, equal chest rise/fall observed, sitter at doorway for continous monitoring
--- NOTE | 2019-12-16 04:00 | NUR ---
pt resting in bed with eyes closed, equal chest rise/fall observed, sitter at doorway for continous monitoring
--- NOTE | 2019-12-16 05:03 | NUR ---
pt resting in bed with eyes closed, equal chest rise/fall observed, sitter at doorway for continous monitoring
--- NOTE | 2019-12-16 07:09 | NUR ---
RECEIVED REPORT FROM TUNDE REY. PT LAYING IN BED, RESPIRATIONS EVEN AND UNLABORED, NO SIGNS OF DISTRESS, LIGHTS OFF TO PROMOTE REST.
--- NOTE | 2019-12-16 07:44 | NUR ---
PT REFUSED VITALS.
--- NOTE | 2019-12-16 08:15 | NUR ---
PT REQUESTED TO SHOWER, SHOWER AND CLEAN LINEN PROVIDED. SECUIRTY ESCORT BACK FROM SHOWER TO ROOM. DISCOVERED PT BUTTOCKS EXORIATED, OFFERED CALAZIME LOTION, PT REFUSED.
[2019-12-16] MEDS ORDERED: OLANZAPINE 10 MG TABLET ONE (08:51)
[2019-12-16] MEDS ORDERED: DIVALPROEX 500 MG TABLET.DR ONE (08:51)
[2019-12-16] MEDS ORDERED: OLANZAPINE 10 MG INJ IM PRN (09:00)
[2019-12-16] MEDS: LEVOTHYROXINE 88 MCG TABLET PO SCH (09:02)
[2019-12-16] MEDS: METOPROLOL SUCCINATE 25 MG TAB.ER.24H PO SCH (09:02)
[2019-12-16] MEDS: LOSARTAN 25MG TABLET PO SCH ×2 (09:02→09:30)
[2019-12-16] MEDS: CYANOCOBALAMIN 1,000 MCG TABLET PO SCH (09:03)
[2019-12-16] MEDS: DIVALPROEX 500 MG TABLET.DR PO SCH (09:03)
[2019-12-16] MEDS: OLANZAPINE 10 MG TABLET PO SCH (09:03)
--- NOTE | 2019-12-16 09:05 | NUR ---
PT MEDICATED TO MAR, NO BP MEDS ADMINISTED BECAUSE PT REFUSING VS. PT IN ROOM WITH BREAKFAST, YELLING IN CONVERSATION AND GRANDIOUS STATEMENTS. PT IN SIGHT OF SITTER. PT REFUSED DEPAKOTE STATING "IT'S NOT PART OF MY MEDS, AND I'M ALLERGIC TO IT"
[2019-12-16 09:30] VITALS: BP 140/72
--- NOTE | 2019-12-16 09:55 | NUR ---
report from nestor perry. pt in room at this time. room secure, sitter in direct line of sight. awaiting [facility] for transfer to [facility]
== END 2019-12-16 13:16 ==
LOC: EDBD 14:37 → ED 15:37 → MERGE 15:37 → UNMERGE 15:37 → ED 12-16 13:16
DX: F23 Brief psychotic disorder (principal); L30.9 Dermatitis, unspecified
CPT/HCPCS: 36415; 80048; 80053; 80307; 81003; 82040; 83605; 85025; 87040; 96372; 99285; J3486